=== PATIENT | male | born 1985 ===

== ENCOUNTER 2023-12-05 00:44 | Outpatient (CLI) | payer OTHER, SELFPAY ==
--- NOTE | 2023-12-05 | DI.RAD_ITS ---
Exam(s) XR ANKLE RT 2V EXAM: XR ANKLE RT 2V CLINICAL HISTORY: DEGENERATIVE ARTHRITIS, OA, RT ANKLE,. TECHNIQUE: 2D digital imaging was performed. Two views. COMPARISON: No exams were available for comparison FINDINGS: BONES: No acute fracture is present. No bony destructive lesion is seen. Small enthesophyte at Ach illes insertion on calcaneus. Smoothly marginated bony density seen beneath the medial malleolus ile us consistent with an old trauma. Minimal spurring at the dorsum of the navicular. JOINTS: The ankle mortise is normally aligned. Mild narrowing of the tibiotalar joint space lateral ly. SOFT TISSUE: Normal. IMPRESSION: Mild degenerative changes tibiotalar joint. Chronic posttraumatic bony densities beneath the medial malleolus. DATA REPOSITORY: RADIATION DOSE DELIVERED:
== END 2023-12-05 01:04 ==
PROVIDERS: Visit Provider Chiropractor
DX: M19.071 Primary osteoarthritis, right ankle and foot (principal)
CPT/HCPCS: 73600